=== PATIENT | female | born 1995 | race Two or more races ===

== ENCOUNTER 2020-09-21 20:03 | Emergency (ER) | payer SELFPAY ==
[~2020-09-21] VITALS: Ht 154.9 cm; Wt 75.5 kg
[2020-09-21 22:50] LABS: BILIRUBIN,URINE NEGATIVE (NEG); CLARITY,URINE CLEAR; COLOR,URINE YELLOW
[2020-09-21 22:51] LABS: BACTERIA,URINE FEW /HPF (0-FEW); NITRITE,URINE NEGATIVE (NEG); PH,URINE 6.5 (<5.0-8.0); PROTEIN,URINE NEGATIVE (NEG-TRACE); RBC,URINE 0 /HPF (0-2); UROBILINOGEN,URINE 0.2 mg/dL (0.2 mg/dL)
[2020-09-21 22:53] VITALS: BP 129/62
== END 2020-09-21 23:50 | disposition left against medical advice (07) ==
LOC: ER 20:03
DX: R10.9 Unspecified abdominal pain (principal); Z53.21 Procedure and treatment not carried out due to patient leaving prior to being seen by health care provider
CPT/HCPCS: 81001; 87086